=== PATIENT | male | born 1990 | race Caucasian/White ===

== ENCOUNTER 2020-11-11 17:02 | Emergency (ER) | payer OTHER ==
[~2020-11-11] VITALS: Ht 180.3 cm; Wt 88.6 kg
[2020-11-11] MEDS ORDERED: FINA5TAB2 PO (17:10)
[2020-11-11] MEDS ORDERED: LIDOCAINE 2% MDV 20ML VIAL SC ONE (18:10)
[2020-11-11 19:24] VITALS: BP 130/70
== END 2020-11-11 19:29 | disposition home or self-care (01) ==
LOC: M ED 17:02
DX: S01.511A Laceration without foreign body of lip, initial encounter (principal); Y92.330 Ice skating rink (indoor) (outdoor) as the place of occurrence of the external cause; Y93.9 Activity, unspecified; Y99.9 Unspecified external cause status